=== PATIENT | male | born 1990 | race Two or more races ===

== ENCOUNTER 2021-04-08 18:04 | Emergency (ER) | payer SELFPAY ==
[~2021-04-08] VITALS: Ht 190.5 cm; Wt 90.7 kg
--- NOTE | 2021-04-08 18:12 | NUR ---
lapd at bedside talking to pt
--- NOTE | 2021-04-08 18:27 | NUR ---
VERONIKA FROM HOME TO ER BED 6. AAOX4. NOT IN RESP DISTRESS, BREATHING EVEN AND UNLABORED BUT NOTED WITH 02 SAT OF 09% ON RA. PT IS TALKING IN FULL SENTENCES. PT WAS BROUGHT INFOR AN ACCIDENTAL OVERDOSE ON FENTANYL. PT REPORTS THAT HE SMOKED IT. 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 PT IS DIAPHORETIC. NOTED TACHYCARDIC AND LOW 02 SAT. MD WAS AT THE BEDSIDE FOR EVAL. ORDERS RECEIVED, NOTED AND CARRIED OUT. IV LINE ALREADY PRESENT ON RFA 18G.
[2021-04-08] MEDS ORDERED: NALO4SPR NS (19:16)
[2021-04-08 19:33] VITALS: BP 127/82
--- NOTE | 2021-04-08 19:45 | NUR ---
PT AMBULATED TO BATHROOM AND USE THE PHONE ON STEADY GAIT. NO RESP DISTRESS NOTED.
--- NOTE | 2021-04-08 19:53 | NUR ---
Patient discharged to home in stable condition. Written and verbal after care instructions given. Patient verbalizes understanding of instruction.IV removed. Catheter intact and site benign. Pressure and 4x4 applied to site. No bleeding noted. Pt ambulatory with a steady gait
== END 2021-04-08 19:54 | disposition home or self-care (01) ==
LOC: ER 18:05
DX: T40.2X1A Poisoning by other opioids, accidental (unintentional), initial encounter (principal); Y92.89 Other specified places as the place of occurrence of the external cause